=== PATIENT | male | born 1940 | race Caucasian/White ===

== ENCOUNTER 2017-02-19 12:48 | Emergency (ER) | payer OTHER, BC ==
[~2017-02-19] VITALS: Ht 182.9 cm; Wt 87.6 kg
[2017-02-19 14:39] LABS: HEMATOCRIT 41.7 % (38.0-50.0); MCH 26.7 PG (29.0-34.0); MCHC 32.1 G/DL (30.0-36.0); MCV 83.2 FL (86-99); MEAN PLAT.VOLUME 9.7 uM^3 (9.0-12.4); PLATELET COUNT 134 K/uL (156-360); RBC DIS.WIDTH-CV 14.8 % (11.8-14.6); RBC DIS.WIDTH-SD 44.8 % (39-53); RED BLOOD COUNT 5.01 M/uL (4.00-5.50); WHITE BLOOD COUNT 4.8 K/uL (4.1-10.2)
[2017-02-19 14:50] LABS: CHLORIDE 104 mEq/L (99-109); INTER. NORMALIZED RATIO 3.1; POTASSIUM 4.1 mEq/L (3.7-5.4); PROTHROMBIN TIME 33.1 (9.2-11.2); PTT 39.9 (25-32); SODIUM 140 mEq/L (136-147)
[2017-02-19 14:52] LABS: GLUCOSE 105 mg/dL (70-99)
[2017-02-19 14:53] LABS: ANION GAP 10 MEQ/L (2-14)
[2017-02-19 14:55] LABS: GFR ESTIMATE (CALCULATED) 42 mL/min/
[2017-02-19 14:56] LABS: UREA NITROGEN (BUN) 17 mg/dL (9-23)
[2017-02-19 16:58] LABS: ADD MIUA? YES; BILIRUBIN NEGATIVE; BLOOD NEGATIVE; COLOR STRAW ((YELLOW)); GLUCOSE (STRIP) NEGATIVE; KETONES NEGATIVE; LEUKOCYTES NEGATIVE; NITRITE NEGATIVE; PROTEIN (STRIP) NEGATIVE; SPECIFIC GRAVITY 1.008 (1.000-1.030); UROBILINOGEN 0.2 MG/DL (0.2-1.0)
[2017-02-19 16:59] LABS: BACTERIA NONE SEEN /HPF; EPITHELIAL CELLS RARE /HPF; MUCUS NONE SEEN /LPF; RED BLOOD CELLS 0-5 /HPF (0-5); UCUL ADDED? NO; WHITE BLOOD CELLS 0-5 /HPF (0-5)
[2017-02-19 17:31] VITALS: BP 117/88
== END 2017-02-19 17:47 | disposition home or self-care (01) ==
LOC: EME 12:48
PROVIDERS: Emergency Medicine; Nurse Practitioner Family
DX: R42 Dizziness and giddiness (principal); I48.91 Unspecified atrial fibrillation; R07.9 Chest pain, unspecified; Z91.81 History of falling; I10 Essential (primary) hypertension; E78.5 Hyperlipidemia, unspecified; K21.9 Gastro-esophageal reflux disease without esophagitis; Z79.01 Long term (current) use of anticoagulants; I38 Endocarditis, valve unspecified
CPT/HCPCS: 70450; 71020; 80048; 81003; 85027; 85610; 85730; 93005; 99281; 99284; J7030